=== PATIENT | male | born 1985 | race Caucasian/White ===

== ENCOUNTER 2020-07-11 14:12 | Emergency (ER) | payer SELFPAY ==
[2020-07-11 14:22] VITALS: BP 159/100; PULSE 77; RESP 18; TEMP 36.9; O2SAT 96; BMI 24.3
--- NOTE | 2020-07-11 14:38 | XRR_ITS ---
PROCEDURE INFORMATION: Exam: XR Left Forearm Exam date and time: 07/11/2020 2:39 PM Age: 34 years old Clinical indication: Pain; Lower or forearm; Left; Additional info: Left arm pain TECHNIQUE: Imaging protocol: XR Left forearm. Views: 2 views. COMPARISON: No relevant prior studies available. FINDINGS: Bones/joints: Nondisplaced acute fracture lucencies in the mid diaphysis of the ulna. Radius normal. No angulation deformity. Soft tissues: Normal. XR/XR forearm LT 2V [id number] IMPRESSION: Nondisplaced acute left ulna diaphyseal fracture.
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
[2020-07-11] MEDS: ibuprofen 600 mg Tablet PO (15:19)
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
--- NOTE | 2020-07-13 08:51 | DCPLANNER ---
staffing program manager had message to schedule a follow up appointment for patient with ortho. staffing program manager called the ortho clinic, spoke with Margie, gave clinic patients information. staffing program manager was told that patients information would be printed and reviewed. Clinic will call patient with appointment information.
--- NOTE | 2020-07-21 10:32 | DCPLANNER ---
teaching manager called the ortho clinic, spoke with Margie to confirm if an appointment had been scheduled for patient. teaching manager was told that clinic has not been able to reach patient. teaching manager called phone number [phone] unable to reach patient at this time, and unable to leave message at this time.
== END 2020-07-11 16:42 | disposition home or self-care (01) ==
PROVIDERS: Emergency Provider Nurse Practitioner Family
DX: S52.045A Nondisplaced fracture of coronoid process of left ulna, initial encounter for closed fracture (principal); S39.012A Strain of muscle, fascia and tendon of lower back, initial encounter; V89.2XXA Person injured in unspecified motor-vehicle accident, traffic, initial encounter
CPT/HCPCS: 29125; 72072; 73090; 99283

== ENCOUNTER 2020-07-28 14:07 | Outpatient (CLI) | payer SELFPAY | END 2020-07-28 14:08 | disposition home or self-care (01) | LOC: SPT 14:07 | PROVIDERS: Visit Provider Orthopaedic Surgery | DX: Z46.89 Encounter for fitting and adjustment of other specified devices (principal); S52.292D Other fracture of shaft of left ulna, subsequent encounter for closed fracture with routine healing; X58.XXXD Exposure to other specified factors, subsequent encounter | CPT/HCPCS: 97760; L3982 ==

== ENCOUNTER → 2020-08-25 09:55 | Outpatient (BNVA) | payer SELFPAY | PROVIDERS: Visit Provider Orthopaedic Surgery | DX: S52.202A Unspecified fracture of shaft of left ulna, initial encounter for closed fracture (principal); S52.692A Other fracture of lower end of left ulna, initial encounter for closed fracture | CPT/HCPCS: 73090 ==

== ENCOUNTER → 2020-09-23 14:04 | Outpatient (BNVA) | payer SELFPAY | PROVIDERS: Visit Provider Orthopaedic Surgery | DX: S52.202A Unspecified fracture of shaft of left ulna, initial encounter for closed fracture (principal); X58.XXXA Exposure to other specified factors, initial encounter | CPT/HCPCS: 73090 ==

== ENCOUNTER 2024-09-03 12:57 | Outpatient (CLI) | payer MEDICAID, SELFPAY ==
--- NOTE | 2024-09-03 13:02 | XR_ITS ---
WS: [id number] Exam: XR lumbar spine min 4V [id number] Date/Time of Exam: 09/03/2024 1:04 PM Reason For Exam: LUMBOSACRAL SPONDYLOLYSIS A left-sided unilateral pars defect of L5 is noted. No spondylolisthesis. No fracture identified. Mild lumbar scoliosis with LEFT convexity. Disc spaces are preserved. Minimal spondylosis. It should be that there are only the very small rudimentary ribs of T12. XR/XR lumbar spine min 4V [id number] IMPRESSION: 1. Unilateral left-sided pars defect at L5 but no spondylolisthesis identified. 2. Minimal lumbar scoliosis. 3. Only tiny rudimentary ribs at T12.
== END 2024-09-03 12:58 | disposition home or self-care (01) ==
PROVIDERS: PCP Family Medicine; Visit Provider Student in an Organized Health Care Education/Training Program
DX: M43.06 Spondylolysis, lumbar region (principal)
CPT/HCPCS: 72110